=== PATIENT | female | born 1990 | race Caucasian/White ===

== ENCOUNTER 2019-03-12 21:59 | Outpatient (CLI) | payer OTHER ==
[2019-03-12 23:24] VITALS: BP 125/77; PULSE 104; RESP 16; TEMP 98.1
--- NOTE | 2019-03-13 02:06 | US ---
EXAM: US After First Trimester, Transabdominal CLINICAL HISTORY: ITS.REASON US Reason: fluid level TECHNIQUE: Real-time transabdominal obstetrical ultrasound of the maternal pelvis and a second or third trimester with image documentation. COMPARISON: No relevant prior studies available. FINDINGS: GESTATIONAL AGE / DATING Dates by Current Scan: (38 weeks/0 days) EDC: 03/27/2019 SURVEY IUP: Single PLACENTA: Anterior. Small anechoic area seen suggestive of venous mendieta measuring 10.6 mm. PREVIA: No Previa AKIRA: 16.5 cm CERVICAL LENGTH: 3.0 cm Limited cervical measurement due to position. BIOMETRY PRESENTATION: Vertex LIE: Longitudinal BPD: 9.42 cm 38 weeks / 3 days HC: 33.68 cm 38 weeks / 4 days AC: 34.19 cm 38 weeks / 1 days FL: 7.50 cm 38 weeks / 3 days ESTIMATED WEIGHT IN GRAMS: 3439 grams ESTIMATED WEIGHT IN LBS/OZ: 7 lbs. 9 oz. WEIGHT PERCENTAGE BASED ON ESTABLISHED DATES: 63.5% HC/AC: 0.99 FL/AC: 21.94 HEART RATE: 160 bpm IMPRESSION: Single live intrauterine measuring 38 weeks.
--- NOTE | 2019-03-20 12:45 | P.MSEPDOC ---
Presenting Problems - Arrival Data Date of Arrival on Unit: 03/12/19 Time of Arrival on Unit: 22:00 Mode of Transport: Portable - Complaint OB-Reason for Admission/Chief Complaint: Possible Onset of Labor Comment: irreg cntrx all day, worsening about 1900 Medical History - Information : 9 Para: 3 Term: 3 : 0 Abortions: Spontaneous or Elective: 5 Number of Living Children: 3 - Gestational Age Gestational Age by GRACE (wks/days): 38 Weeks and 1 Days - History Complications: Prior Comment: former smoker, quit with Review of Systems - Review of Systems Constitutional: No problems Breast: No problems ENT: No problems Cardiovascular: No problems Respiratory: No problems Gastrointestinal: No problems Genitourinary: No problems Musculoskeletal: No problems Neurological: No problems Skin: No problems Vital Signs - Temperature Temperature: 98.1 F Temperature Source: Oral - Pulse Right Pulse Rate: 104 Pulse Assessment Method: Pulse Oximetry - Respirations Respiratory Rate: 16 O2 Sat by Pulse Oximetry: 97 - Blood Pressure Right Arm Blood Pressure: 125/77 Blood Pressure Mean: 93 Blood Pressure Source: Automatic Cuff Medical Screen Scoring (Pre) - Cervical Exam Dilation: 0 cm = 0 Effacement: More than 50% = 2 Membranes: Intact - Uterine Contractions Frequency: > or = 36 weeks =2 - Maternal Vital Signs Maternal Temperature: N/A Maternal Blood Pressure: N/A Signs of Preeclampsia: N/A Maternal Respirations: N/A - Maternal Trauma Maternal Trauma: N/A - Assessment - Baby A Baseline FHR: 120 Heart Rate - NICHD Category: Category I (Normal) = 0 NST: Reactive Position: N/A - Total Score - Baby A Total Score - Baby A: 4 - Total Score - Baby B Total Score - Baby B: 4 - Total Score - Baby C Total Score - Baby C: 4 - Level of Risk - Baby A Level of Risk - Baby A: Low (0-5) - Level of Risk - Baby B Level of Risk - Baby B: Low (0-5) - Level of Risk - Baby C Level of Risk - Baby C: Low (0-5) Physician Notification (Post) - Notification Comment Comment: Dr. Flores at bedside Disposition - Disposition Discharge Date: 03/13/19 Discharge Time: 01:54 I agree with the RN Medical Screening Exam: Yes Risk & Benefit of care provided described in d/c instruction: Yes Diagnosis: FALSE LABOR AT OR AFTER 37 COMPLETED WEEKS OF GESTATION
== END 2019-03-13 01:54 | disposition home or self-care (01) ==
LOC: FBPOP 21:59
PROVIDERS: ATTEND Obstetrics & Gynecology
DX: O47.1 False labor at or after 37 completed weeks of gestation (principal); Z3A.38 38 weeks gestation of pregnancy
CPT/HCPCS: 59025; 76805; G0463; 99213

== ENCOUNTER 2019-03-19 05:49 | Inpatient (IN) | payer OTHER ==
[2019-03-15 15:18] VITALS: BMI 31.9
[2019-03-19] MEDS ORDERED: LACTATED RINGERS 1,000 ML IV ONE (06:22)
[2019-03-19] MEDS ORDERED: CITRIC ACID-SODIUM CITRATE 15 ML CUP PO ONE (06:22)
[2019-03-19] MEDS ORDERED: ceFAZolin IN SWFI 2 GM/20 ML SYRINGE IVP ONE (06:22)
[2019-03-19 07:18] LABS: Basophils % (A) 1 %; Eosinophils # (A) 0.1 k/uL (0-0.7); Eosinophils % (A) 1 %; HCT 33.8 % (34.0-46.0); HGB 11.1 gm/dL (11.4-16.0); Hypochromasia Slight; Lymphocytes % (A) 23 %; MCHC 32.8 g/dL (31.0-37.0); MCV 85.4 fL (80.0-100.0); Mean Platelet Volume 9.1; Monocytes # (A) 0.5 k/uL (0-1.0); Monocytes % (A) 5 %; Neutrophils # (A) 6.1 k/uL (1.3-7.7); Neutrophils % (A) 69 %; Platelet Count 237 k/uL (150-450); RBC 3.96 m/uL (3.80-5.40); WBC 8.8 k/uL (3.8-10.6)
[2019-03-19] MEDS ORDERED: KETOROLAC 30 MG/ML 1 ML VIAL ONE (08:00)
[2019-03-19] MEDS ORDERED: PHENYLEPHRINE-0.9% NACL SYG 1 MG/10 ML SYRINGE ONE (08:00)
[2019-03-19] MEDS ORDERED: ONDANSETRON 4 MG/2 ML VIAL ONE (08:00)
[2019-03-19] MEDS ORDERED: LACTATED RINGERS 1,000 ML BAG IV ONE (08:00)
[2019-03-19] MEDS ORDERED: MORPHINE SULFATE (PF) 0.3 MG/0.3 ML SYR ONE (08:00)
[2019-03-19] MEDS ORDERED: NALBUPHINE 10 MG/ML (1 ML AMP) ONE (08:00)
[2019-03-19] MEDS ORDERED: OXYTOCIN 10 UNIT/ML 1 ML VIAL ONE (08:00)
[2019-03-19] MEDS ORDERED: NALOXONE 0.4 MG/ML 1 ML VIAL IV PRN ×2 (08:32→08:46)
[2019-03-19] MEDS ORDERED: ONDANSETRON 4 MG/2 ML VIAL IVP PRN ×2 (08:32→08:46)
[2019-03-19] MEDS ORDERED: diphenhydrAMINE 50 MG/ML 1 ML VIAL IVP PRN ×3 (08:32→08:46)
[2019-03-19] MEDS ORDERED: HYDROmorphone 0.5 MG/0.5 ML SYRINGE IVP PRN (08:32)
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
--- NOTE | 2019-03-19 08:43 | P.OP ---
Date of Procedure: 03/19/19 Preoperative Diagnosis: Intrauterine : Prior sections: Family planning Postoperative Diagnosis: Same Procedure(s) Performed: Repeat low transverse section Anesthesia: spinal Surgeon: Richardson Rivero Postulant #1: Malcolm Curry Estimated Blood Loss (ml): 500 IV fluids (ml): 800 Urine output (ml): 100 Pathology: none sent Condition: stable Disposition: floor Operative Findings: Female scores of 9 and 9 at one and 5 minutes respectively and the weight was 8 lbs. 3 oz. There was a body the cord noted but did not cause any issues Description of Procedure: Patient was taken to the operating suite where a spinal anesthetic was found be adequate. She was prepped and draped in the normal sterile fashion and placed in dorsal supine position with leftward tilt. Initially a Pfannenstiel skin incision was made and this incision was then carried through to the underlying layer of the fascia second knife. Fascia was then nicked in midline and this opening was extended laterally with Duke scissors. Superior and inferior aspect this incision was then grasped tented up and bluntly and sharply dissected off the rectus muscles. Rectus muscles were then divided the midline and sharp dissection through the peritoneum was done. Once this opening was created Duke scissors reviewed to extend the incision superiorly and inferiorly due to scar tissue. Once this was accomplished bladder blade was placed bladder was noted to be well out of our incision line and therefore he incision on the uterus was made and this opening was fully developed with hemostat and bluntly extended. Head was then atraumatically delivered and mouth nares were bulb suctioned. Anterior and posterior shoulders along with the remainder the baby was then del ivered without difficulty. Umbilical cord was then clamped cut usual fashion an nursery personnel was present to assume care. Placenta was then delivered intact and Pitocin was added to the IV. Uterus was then exteriorized cleared of clots and debris and closed in 1 layer with 0 Vicryl suture. Once excellent hemostasis was obtained Filshie clip's were placed 2 cm from uterine cornu. No bleeding is noted in the mesosalpinx. Blood and debris and debris was then suctioned from the posterior cul-de-sac. Uterus was then reinserted into the abdomen and the peritoneal layer was reapproximated with 3-0 Vicryl. Fascial layer was then closed with 0 Vicryl suture. One layer of 3-0 Vicryl was placed in deep subcuticular tissues to reapproximate skin and close space. Skin was then closed with 3-0 Vicryl subcuticular. Sponge, lap, needle counts were all correct 2. Patient was then taken to the recovery room in stable and satisfactory condition.
[2019-03-19] MEDS ORDERED: diphenhydrAMINE 25 MG CAP PO PRN (08:46)
[2019-03-19] MEDS ORDERED: ACETAMINOPHEN TAB 325 MG TAB PO PRN (08:46)
[2019-03-19] MEDS ORDERED: ZOLPIDEM 5 MG TAB PO PRN (08:46)
[2019-03-19] MEDS ORDERED: diphenhydrAMINE 50 MG CAP PO PRN (08:46)
[2019-03-19] MEDS ORDERED: KETOROLAC 30 MG/ML 1 ML VIAL IVP PRN (08:46)
[2019-03-19] MEDS: LACTATED RINGERS 1,000 ML IV SCH ×4 (09:14→20:32)
[2019-03-19] MEDS: KETOROLAC 30 MG/ML 1 ML VIAL IVP PRN ×2 (14:53→23:08)
[2019-03-19] MEDS: SENNOSIDES-DOCUSATE SODIUM 1 EACH TAB PO SCH (19:36)
--- NOTE | 2019-03-20 05:49 | P.PN ---
Progress Note - Text Progress Note Date: 03/20/19 Patient doing well. Ambulating without paresthesia or weakness. Denies headache. Pain controlled. Spinal site clean and dry A/P POD#1 s/p with spinal duramorph - doing well
[2019-03-20] MEDS: HYDROcodone/APAP 7.5-325MG 1 EACH TAB PO PRN ×4 (07:05→23:44)
--- NOTE | 2019-03-20 07:35 | P.PNOBGPC ---
Subjective - Subjective Principal diagnosis: Postop day 1 Interval history: Overall scissors doing very well. She is involuting, voiding tolerating her diet. She'll take sharp later this morning and will remove dressing. Vital signs are stable and afebrile. Heart regular, lungs clear, extremities without pain. Abdomen soft and nontender other than incisional tenderness. Uterus is firm. Assessment postop day 1. Plan advance diet and continue current care. Patient reports: Reports appetite normal, Reports voiding normally, Reports pain well controlled, Reports ambulating normally : doing well Objective - Vital Signs Latest vital signs: Vital Signs Temp Pulse Resp BP Pulse Ox 03/20/19 06:00 16 03/20/19 03:57 98.2 F 78 14 107/66 98 03/20/19 02:00 16 03/19/19 23:55 97.0 F L 88 16 104/61 98 03/19/19 22:00 16 03/19/19 19:45 97.9 F 85 16 99/51 98 03/19/19 18:00 18 03/19/19 16:00 18 03/19/19 15:00 98.1 F 84 18 106/64 96 03/19/19 14:00 18 03/19/19 12:00 18 03/19/19 10:40 97.6 F 66 16 102/60 98 03/19/19 10:10 66 16 102/57 97 03/19/19 09:40 81 16 101/56 98 03/19/19 09:25 76 16 100/67 98 03/19/19 09:10 77 16 100/56 98 03/19/19 08:55 90 16 107/54 98 03/19/19 08:40 96.3 F L 100 16 106/57 97 Intake and Output 03/19/19 03/20/19 03/20/19 22:59 06:59 14:59 Intake Total 1000 Output Total 1600 1500 Balance -600 -1500 Intake: IV 1000 Invasive Line 1 1000 Output: Urine 1600 1500 Uretheral (Jon) 600 Other: # Voids 1
[2019-03-20 07:49] LABS: Basophils % (A) 0 %; Eosinophils # (A) 0.1 k/uL (0-0.7); Eosinophils % (A) 1 %; HCT 33.2 % (34.0-46.0); HGB 10.8 gm/dL (11.4-16.0); Hypochromasia Slight; Lymphocytes # (A) 1.6 k/uL (1.0-4.8); Lymphocytes % (A) 15 %; MCHC 32.6 g/dL (31.0-37.0); Mean Platelet Volume 9.1; Monocytes # (A) 0.7 k/uL (0-1.0); Monocytes % (A) 7 %; Neutrophils # (A) 8.5 k/uL (1.3-7.7); Neutrophils % (A) 77 %; Platelet Count 214 k/uL (150-450); RBC 3.87 m/uL (3.80-5.40); RDW 14.5 % (11.5-15.5); WBC 11.1 k/uL (3.8-10.6)
[2019-03-20] MEDS: SENNOSIDES-DOCUSATE SODIUM 1 EACH TAB PO SCH ×2 (08:17→19:46)
[2019-03-20] MEDS: IBUPROFEN 600 MG TAB PO PRN ×2 (10:41→18:41)
[2019-03-20 15:35] VITALS: RESP 16
[2019-03-21 00:32] VITALS: TEMP 97.7
[2019-03-21] MEDS: IBUPROFEN 600 MG TAB PO PRN ×2 (03:07→11:14)
[2019-03-21] MEDS: HYDROcodone/APAP 7.5-325MG 1 EACH TAB PO PRN (05:59)
--- NOTE | 2019-03-21 08:16 | P.PNOBGPC ---
Subjective - Subjective Principal diagnosis: Postop day 2 Interval history: Overall Davina is doing well. She is involuting, voiding tolerating her diet. She is passing flatus. All questions are answered for today. Her baby is on the BiliBlanket and therefore is not ready to go home. We'll plan continue care for now. Vital signs otherwise stable and afebrile. Heart regular, lungs clear, extremities without pain. Abdomen soft positive bowel sounds are noted in her incision is clean dry and intact. Assessment day 2/postop day 2. Plan continue care. Patient reports: Reports appetite normal, Reports voiding normally, Reports pain well controlled, Reports ambulating normally : other (Jaundice) Objective - Vital Signs Latest vital signs: Vital Signs Temp Pulse Resp BP Pulse Ox 03/21/19 00:00 97.7 F 83 16 104/58 03/20/19 15:35 98.3 F 94 16 116/59 03/20/19 11:38 96 03/20/19 11:36 98.3 F 74 18 111/64 96 Intake and Output 03/20/19 03/21/19 03/21/19 22:59 06:59 14:59 Other: # Voids 1 1
[2019-03-21 08:30] VITALS: BP 101/74; PULSE 82
[2019-03-21] MEDS: SENNOSIDES-DOCUSATE SODIUM 1 EACH TAB PO SCH (08:39)
--- NOTE | 2019-03-21 14:23 | P.DS ---
Providers Date of admission: 03/19/19 05:49 Expected date of discharge: 03/21/19 Attending physician: Richardson Rivero Primary care physician: [facility] Course: Davina is doing very well this afternoon. Nursery was determined baby may be discharged to home this evening. Discharge instructions were thoroughly reviewed and all questions were answered for her and there is no changes from earlier evaluation. She is doing very well. Prescription for Motrin and [place] has been provided. She will follow up with me in 1 week. Patient Condition at Discharge: Good Plan - Discharge Summary Discharge Rx Participant: No New Discharge Prescriptions: New Ibuprofen [Motrin] 600 mg PO Q6HR PRN #30 tab PRN Reason: Pain HYDROcodone/APAP 5-325MG [[place] 5-325] 1 tab PO Q4HR PRN #30 tab PRN Reason: Pain No Action Yck-Qbff-Hrzkt Acid [-U Capsule] 1 tab PO DAILY Chewable Calcium Unk Dose 1 tab PO DAILY Discharge Medication List Aer-Cezo-Swybx Acid [-U Capsule] 1 tab PO DAILY 07/24/14 [History] Chewable Calcium Unk Dose 1 tab PO DAILY 03/15/19 [History] HYDROcodone/APAP 5-325MG [[place] 5-325] 1 tab PO Q4HR PRN #30 tab 03/21/19 [Rx] Ibuprofen [Motrin] 600 mg PO Q6HR PRN #30 tab 03/21/19 [Rx] Follow up Appointment(s)/Referral(s): Richardson Rivero DO [Doctor of Osteopathic Medicine] - 1 Week Activity/Diet/Wound Care/Special Instructions: No heavy lifting, limit stairs and driving, and pelvic rest. If any high temperatures, heavy bleeding, or severe pain call my office Discharge Disposition: HOME SELF-CARE
== END 2019-03-21 16:15 | disposition home or self-care (01) | DRG 785 ==
LOC: 4FBP 05:49
PROVIDERS: ADMIT Obstetrics & Gynecology; ATTEND Obstetrics & Gynecology
PROC: 0UL70CZ Occlusion of Bilateral Fallopian Tubes with Extraluminal Device, Open Approach (ICD-10-PCS; 2019-03-19)
PROC: 10D00Z1 Extraction of Products of Conception, Low, Open Approach (ICD-10-PCS; principal; 2019-03-19 08:00)
DX: O34.211 Maternal care for low transverse scar from previous cesarean delivery (principal); N85.8 Other specified noninflammatory disorders of uterus; Z3A.00 Weeks of gestation of pregnancy not specified; Z37.0 Single live birth; Z30.2 Encounter for sterilization; F17.290 Nicotine dependence, other tobacco product, uncomplicated; Z79.899 Other long term (current) drug therapy; Z86.2 Personal history of diseases of the blood and blood-forming organs and certain disorders involving the immune mechanism; Z98.890 Other specified postprocedural states; Z91.018 Allergy to other foods
CPT/HCPCS: 85025; 86850; 86900; 86901

== ENCOUNTER 2019-03-23 23:28 | Emergency (ER) | payer OTHER ==
[2019-03-23 23:48] VITALS: TEMP 99.5
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
[2019-03-24 01:19] LABS: HGB 10.6 gm/dL (11.4-16.0); Hypochromasia Slight; MCH 27.9 pg (25.0-35.0); MCV 84.4 fL (80.0-100.0); Mean Platelet Volume 8.1; Platelet Count 298 k/uL (150-450); RBC 3.79 m/uL (3.80-5.40); RDW 13.7 % (11.5-15.5); WBC 11.9 k/uL (3.8-10.6)
[2019-03-24 01:29] LABS: ALT 16 U/L (9-52); AST 19 U/L (14-36); African American GFR (CKD) >90 (>60 ml/min/1.73 sqM); Albumin 3.3 g/dL (3.5-5.0); Alkaline Phosphatase 126 U/L (38-126); Anion Gap 10 mmol/L; Blood Urea Nitrogen 13 mg/dL (7-17); Calcium 9.3 mg/dL (8.4-10.2); Carbon Dioxide 20 mmol/L (22-30); Chloride 108 mmol/L (98-107); Glucose 89 mg/dL (74-99); Potassium 4.3 mmol/L (3.5-5.1); Sodium 138 mmol/L (137-145); Total Bilirubin 0.4 mg/dL (0.2-1.3); Total Protein 6.1 g/dL (6.3-8.2)
--- NOTE | 2019-03-24 01:33 | XR ---
EXAM: XR Abdomen, 1 View CLINICAL HISTORY: ITS.REASON XR Reason: Pain TECHNIQUE: Frontal supine view of the abdomen/pelvis. COMPARISON: No relevant prior studies available. FINDINGS: Gastrointestinal tract: Unremarkable. No dilation. Bones/joints: Unremarkable. IMPRESSION: Normal abdominal x-ray.
[2019-03-24] MEDS ORDERED: MORPHINE SULFATE 4 MG/ML SYRINGE IVP STA (02:09)
--- NOTE | 2019-03-24 02:40 | CT ---
EXAM: CT Abdomen and Pelvis With Intravenous Contrast CLINICAL HISTORY: ITS.REASON CT Reason: Pain TECHNIQUE: Axial computed tomography images of the abdomen and pelvis with intravenous contrast. This CT exam was performed using one or more of the following dose reduction techniques: automated exposure control, adjustment of the mA and/or kV according to patient size, and/or use of iterative reconstruction technique. COMPARISON: No relevant prior studies available. FINDINGS: Lung bases: Unremarkable. No mass. No consolidation. ABDOMEN: Liver: Unremarkable. No mass. Gallbladder and bile ducts: No abnormal ductal dilation or stones. Pancreas: Unremarkable. No mass. No ductal dilation. Spleen: Unremarkable. No splenomegaly. Adrenals: Unremarkable. No mass. Kidneys and ureters: Unremarkable. No solid mass. No hydronephrosis. Stomach and bowel: No obstruction. No mucosal thickening. PELVIS: Appendix: No findings to suggest acute appendicitis. Bladder: Unremarkable. No mass. Reproductive: Uterus is enlarged and may be post gravid. There are scattered areas of gas within the uterus. ABDOMEN and PELVIS: Intraperitoneal space: Unremarkable. No free air. No significant fluid collection. Bones/joints: No acute fracture. No dislocation. Soft tissues: No abdominal wall fluid collection. Vasculature: No abdominal aortic aneurysm. Lymph nodes: Unremarkable. No enlarged lymph nodes. IMPRESSION: 1. Uterus is enlarged and may be post gravid. There are scattered areas of gas within the uterus. Please correlate clinically. No intrapelvic fluid collection. 2. No abdominal wall fluid collection.
[2019-03-24 04:25] VITALS: BP 109/75; PULSE 63; RESP 16
== END 2019-03-24 04:25 | disposition home or self-care (01) ==
LOC: EC 23:28
DX: R10.31 Right lower quadrant pain (principal); R10.32 Left lower quadrant pain; R10.813 Right lower quadrant abdominal tenderness; R10.814 Left lower quadrant abdominal tenderness; R50.9 Fever, unspecified; D72.829 Elevated white blood cell count, unspecified; Z91.018 Allergy to other foods; Z87.891 Personal history of nicotine dependence; Z98.51 Tubal ligation status; Z98.890 Other specified postprocedural states
CPT/HCPCS: 36415; 80053; 85027; 74018; 74177; 99284; 96374; J2270; Q9967

== ENCOUNTER → 2020-01-29 | Outpatient (CLI) | payer OTHER | END | disposition home or self-care (01) | LOC: LABWHC1 13:24 | PROVIDERS: ATTEND Family Medicine | DX: Z11.59 Encounter for screening for other viral diseases (principal) | CPT/HCPCS: 87635 ==

== ENCOUNTER → 2020-01-30 | Day surgery (SDC) | payer OTHER ==
[2020-01-30 12:01] VITALS: RESP 16; TEMP 98
[2020-01-30 14:09] VITALS: BP 97/57; PULSE 77
--- NOTE | 2020-01-30 14:13 | USB ---
EXAMINATION TYPE: US biopsy breast VAD RT DATE OF EXAM: 01/30/2020 CLINICAL HISTORY: N63 Breast lump. Palpable nonpainful abnormality, abnormal outside ultrasound. TECHNIQUE: Ultrasound guided core biopsy of right breast with clip placement. COMPARISON: Outside right breast ultrasound report January 09, 2020 FINDINGS: The procedure of ultrasound guided core biopsy was explained to the patient. Benefits, alternatives, and risks were discussed. An informed consent was then obtained. The patient was placed in supine positioning for imaging and for the procedure. Preprocedure ultrasound redemonstrates 2.8 x 1.8 cm oval well-defined heterogeneous hypoechoic lesion 12:00 position right breast. The overlying skin was prepped and draped in usual sterile fashion. Lidocaine is used as anesthetic into the skin and subcutaneous tissue up to area of concern in the right breast. Under ultrasound guidance, a vacuum assisted biopsy gun device was used to obtain 3 core samples. Following this, a biopsy clip was left on periphery or average of lesion as I could not penetrate lesion for more central placement. The patient tolerated the procedure well without any immediate complication. The patient was kept in the radiology department for short stay after the procedure and then discharged home in stable condition. IMPRESSION: Successful, uncomplicated ultrasound guided core biopsy of area of concern in the right breast, full pathology results to follow. Low index of suspicion, favor fibroadenoma. Pathology Results: Benign RIGHT BREAST, TWELVE O'CLOCK, ULTRASOUND GUIDED CORE BIOPSY: Fibroadenoma. Recommendation Excision can be considered if symptomatic. MTDD
== END ==
LOC: RADUSWWP 10:48
PROVIDERS: ATTEND Family Medicine
DX: D24.1 Benign neoplasm of right breast (principal)
CPT/HCPCS: 88305; 19083; A4648; J2001

== ENCOUNTER → 2020-05-16 | Outpatient (CLI) | payer OTHER ==
[2020-05-16 15:25] VITALS: BP 111/73; PULSE 111; RESP 18; TEMP 98.5
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
== END | disposition home or self-care (01) ==
LOC: WWCWWP 14:45
PROVIDERS: ATTEND Surgery
DX: Z53.9 Procedure and treatment not carried out, unspecified reason (principal)

== ENCOUNTER → 2020-06-02 | Outpatient (CLI) | payer OTHER ==
--- NOTE | 2020-06-02 12:20 | USB ---
Reason for exam: follow-up at short interval from prior study. History: Benign US biopsy breast VAD RT of the right breast, January 30, 2020. Physical Findings: Nurse Summary: 2cm movable tender lump right breast 12 o'clock, 1cm lump right breast 8 o'clock (nurse mj). US Breast BILAT Right complete breast ultrasound includes all four quadrants, the retroareolar region and axilla. Finding demonstrates a 2.9 x 2.6 x 1.7cm oval, solid, hypoechoic, vascular lesion at 12 o'clock BB, a 1.6 x 2.1 x 1.5cm oval, lobular, solid, hypoechoic, vascular lesion at 8 o'clock BB and a 0.9 x 0.4 x 0.4cm oval, solid, hypoechoic lesion at 10 o'clock. Left complete breast ultrasound includes all four quadrants, the retroareolar region and axilla. Finding demonstrates a 0.4 x 0.4 x 0.1cm oval, irregular, hypoechoic lesion at 1 o'clock and a 1.4 x 1.0 x 0.4cm elongated, lobular, hypoechoic, vascular lesion at 9 o'clock, biopsy recommended. These results were verbally communicated with the patient and result sheet given to the patient on 06/02/20. ASSESSMENT: Suspicious, BI-RAD 4 RECOMMENDATION: Ultrasound core biopsy of the left breast. (9 o'clock) Called office with mammographic findings and has scheduled an appointment for the patient for 06/13/20 at 9:[address] Best. Biopsy scheduled for 06/16/20 at 10:30. PRELIMINARY REPORT CALLED AND FAXED TO DR. BEST ON 06/02/20.
== END | disposition home or self-care (01) ==
LOC: RADUSWWP 09:43
PROVIDERS: ATTEND Surgery
DX: N63.20 Unspecified lump in the left breast, unspecified quadrant (principal); N63.10 Unspecified lump in the right breast, unspecified quadrant

== ENCOUNTER → 2020-06-16 | Day surgery (SDC) | payer OTHER ==
[2020-06-16 09:53] VITALS: BP 116/78; PULSE 91; RESP 16; TEMP 98.6
--- NOTE | 2020-06-16 18:07 | USB ---
EXAMINATION TYPE: US discontinued breast bx LT DATE OF EXAM: 06/16/2020 COMPARISON: 06/02/2020 HISTORY: 29-year-old female referred for ultrasound-guided left breast biopsy at the 9:00 position. E nlarging fibroadenomas scheduled for excision within the right breast. TECHNIQUE: Initial targeted ultrasound examination at the 9:00 position at the intended biopsy target . FINDINGS: There is a poorly defined area of hypoechogenicity. On real-time scanning, this area appears to dispe rse and elongate resembling the surrounding breast parenchyma. This is not felt to represent an adequ ate biopsy targeted on real-time scanning. Biopsy is being canceled and 6 month follow-up ultrasound is recommended. Findings and impression are discussed with the patient. IMPRESSION: BI-RADS 3, probably benign. RECOMMENDATION: 1. Six-month follow-up left breast ultrasound at the 9:00 position. The intended biopsy targeted appe ars to disperse and elongate on real-time scanning resembling normal breast tissue. 2. Continue with intended plan for surgical management of enlarging right-sided fibroadenoma.
== END ==
LOC: RADUSWWP 09:35
PROVIDERS: ATTEND Surgery
DX: R92.8 Other abnormal and inconclusive findings on diagnostic imaging of breast (principal); Z53.8 Procedure and treatment not carried out for other reasons

== ENCOUNTER → 2020-07-18 | Outpatient (CLI) | payer OTHER ==
[2020-07-18 14:11] VITALS: BP 111/75; PULSE 87; RESP 18; TEMP 98
--- NOTE | 2020-07-18 14:20 | P.PN ---
Subjective Progress Note Date: 07/18/20 Principal diagnosis: mass right breast Yenni is a 29 -year-old white female who presents with a complaint of a palpable lump in the 12 o'clock position of the right breast. This has been present since approximately October 2019. A biopsy was performed and was consistent with a fibroadenoma. At that time the lesion was approximately 2.8 cm in size. She believes it is increased in size since that time. It is not painful. She also complains of some new nodularity which is tender in the inferior aspect of the right breast. She is not complaining of any lumps masses or nodules in the left breast. She complains of some bloody discharge from the right nipple complex, this happened once approximately 3 weeks ago. This was spontaneous and she noted it when she woke up in the morning. She is not complaining of any discharge from the left nipple complex. She has no history of any recent trauma or infection of the breast. Bilateral breast ultrasound was performed on 157 820 this revealed in the right breast: 2.9 cm x 2.6 cm solid lesion at 12:00 1.6 cm x 1.5 cm solid lesion at 8:00 An 0.9 cm x 0.4 cm solid lesion at 10:00 Left breast revealed 0.4 x 0.4 cm irregular lesion at 1:00 1.4 x 1 cm lobulated lesion at 9:00 biopsy recommended The patient came for a left breast ultrasound-guided core biopsy on however this appeared to disperse and the radiologist felt that this could be canceled and therefore a 6 month follow-up ultrasound was recommended instead. Caffeine: Depending on the day she may drink a pot of coffee or feeding Nicotine: vapes intermittently throughout the day Theophylline: occasional Family history: maternal great aunts: 2 with breast cancer maternal great grandmother: breast cancer Maternal grandfather: Pancreatic cancer Paternal grandfather: Colon cancer Maternal grandmother: Kidney cancer and lymphoma Hormonal History: menarche: 13 , miscarrages: 5, breast fed: none; first born at 21 periods irregular since tubaligation/ occurs every 14-16 days BCP: none hormones: none Surgical history: Left arm Pneumothorax 5 emergency D&Cs 4 C-sections Tubal ligation Medical history: hypoglycemic Social History: Smoking: Negative, patient invades Alcohol: Negative Drugs: Marijuana occasionally - Constitutional Constitutional: Denies chills, Denies fever - EENT Eyes: denies blurred vision, denies pain Ears: deny: decreased hearing, tinnitus Ears, nose, mouth and throat: Denies headache, Denies sore throat - Breasts Breasts: bilateral: as per HPI - Cardiovascular Cardiovascular: Denies chest pain, Denies shortness of breath - Respiratory Respiratory: Denies cough - Gastrointestinal Gastrointestinal: Denies abdominal pain, Denies diarrhea, Denies nausea, Denies vomiting - Genitourinary (Female) Comment: Frequent kidney infections Genitourinary: Denies dysuria, Denies hematuria - Menstruation Menstruation: Reports cycle variable - Musculoskeletal Musculoskeletal: Denies myalgias - Integumentary Integumentary: Denies pruritus, Denies rash - Neurological Neurological: Denies numbness, Denies weakness - Psychiatric Psychiatric: Denies anxiety, Denies depression - Endocrine Endocrine: Denies fatigue, Denies weight change - Hematologic/Lymphatic Comment: none - Allergic/Immunologic Allergic/Immunologic: Reports as per HPI Objective - Constitutional General appearance: Present: average body habitus - EENT Eyes: Present: EOMI ENT: Present: hearing grossly normal - Neck Neck: Present: normal ROM - Respiratory Respiratory: bilateral: CTA - Cardiovascular Rhythm: regular Heart sounds: normal: S1, S2 - Gastrointestinal General gastrointestinal: Present: normal bowel sounds, soft - Integumentary Integumentary: Present: normal turgor - Musculoskeletal Musculoskeletal: Present: gait normal - Psychiatric Psychiatric: Present: A&O x's 3, appropriate affect - Additional findings Additional findings: breat exam: BRA: 36C inspection: bilateral grade 2 ptosis palpation: right breast: Multi-positional examination reveals proximally 2.6 cm lesion near 12:00 and about a 1.3 cm lesion near 7:00 otherwise fibrocystic changes Right axilla: No adenopathy of concern Left breast: Fibrocystic changes and multiple positional exam no dominant masses or nodules of concern Left axilla: No adenopathy of concern Assessment and Plan Assessment: Impression: 1. 2 palpable abnormalities right breast core biopsy of one consistent with fibro adenoma 2. Left breast mammogram/ultrasound attempted core biopsy recommended to have repeat ultrasound in 6 months biopsy was canceled via radiology Plan: 1. Excisional biopsy 2 palpable abnormalities right breast we will not plan to use mastopexy incision but may do onco-plastic tissue transfer Risks and benefits of the procedure discussed with the patient including but not limited to bleeding, infection, reaction to the anesthetic. She may have recurrent fibroadenoma in the future. She understands and wishes to proceed. CC: Jocelyne Marie encounter 25 minutes > 50% of time in planning and counselling
== END | disposition home or self-care (01) ==
LOC: WWCWWP 13:58
PROVIDERS: ATTEND Surgery
DX: Z53.9 Procedure and treatment not carried out, unspecified reason (principal)

== ENCOUNTER 2020-07-22 11:09 | Day surgery (SDC) | payer OTHER ==
[2020-07-21 10:10] VITALS: BMI 25.0
[~2020-07-22 11:09] MED LIST: HEPARIN SODIUM,PORCINE 5,000 UNIT/ML 1 ML VIAL SQ ONE; HYDROmorphone 0.5 MG/0.5 ML SYRINGE IVP PRN; LACTATED RINGERS 1,000 ML IV SCH; ONDANSETRON 4 MG/2 ML VIAL IVP ONE; Pre Op ABX Message 1 EACH MISC MISCELLANE ONE; fentaNYL (PF) 50 MCG/ML 2 ML AMP IV PRN
[2020-07-22 11:41] LABS: Glucose,Whole Blood 84 mg/dL (75-99)
[2020-07-22] MEDS ORDERED: DEXAMETHASONE SOD PHOSPHATE 4 MG/ML 1 ML VIAL IV ONE (11:41)
[2020-07-22] MEDS ORDERED: HYDROmorphone (PF) 1 MG/ML ONE (13:14)
[2020-07-22] MEDS ORDERED: PROPOFOL 10 MG/ML 20 ML VIAL IV ONE (13:14)
[2020-07-22] MEDS ORDERED: SUCCINYLCHOLINE CHLORIDE 100 MG/5 ML SYR IV ONE (13:14)
[2020-07-22] MEDS ORDERED: LIDOCAINE 1% INJ 10MG/ML (20 ML MDV) ONE (13:14)
[2020-07-22] MEDS ORDERED: PHENYLEPHRINE-0.9% NACL SYG 1 MG/10 ML SYRINGE ONE (13:14)
[2020-07-22] MEDS ORDERED: fentaNYL (PF) 50 MCG/ML 2 ML AMP ONE (13:14)
[2020-07-22] MEDS ORDERED: MIDAZOLAM 2 MG/2 ML VIAL ONE (13:14)
--- NOTE | 2020-07-22 14:24 | P.OP ---
Date of Procedure: 07/22/20 Preoperative Diagnosis: Palpable mass 2 right breast Postoperative Diagnosis: same Procedure(s) Performed: Excision breast lesion 2 right breast Anesthesia: JAMIR Surgeon: Danni Best Estimated Blood Loss (ml): 5 IV fluids (ml): 650 Pathology: other (lesion tmes two right breast) Condition: stable Disposition: same day Indications for Procedure: palpable mass times two right breast, core biopsy fibroadenoma Operative Findings: two masses right breast Description of Procedure: The patient is a 29-year-old white female who presents with 2 palpable masses in her right breast. Core biopsy had been consistent with fibroadenoma. These are worrisome for the patient. The patient was brought to the operating room and following induction of general anesthesia the right breast was prepped and draped in a sterile fashion. 2 lesions were palpable one at 12:00 and one at 7:30 to 8:00. The lesion at 7:30 to 8:00 and removed first. An incision was made over the lesion and this area was resected. It was 2 cm x 2 cm in size and deep in the breast tissue. After assured that hemostasis was attained the skin was closed using a 3-0 Vicryl for deep tissues and 4-0 Monocryl and the superfic ial tissues with a nylon skin suture. The superior lesion was then approached. This was 2 x 2 centimeters in size. This was deep on the pectoralis major muscle. Incision was made over the palpable mass and this was excised. After we were assured that hemostasis was obtained the deep tissues were closed using a 3-0 Vicryl suture followed by closure of the skin with 4-0 Monocryl, Steri-Strips were applied. The patient tolerated the procedure in stable condition. All instrument and sponge counts were correct at the end of the case.
--- NOTE | 2020-07-22 14:26 | P.DS ---
Providers Attending physician: Danni Best Primary care physician: Jorge Luis Milligan MD Plan - Discharge Summary Discharge Rx Participant: No New Discharge Prescriptions: No Action Cholecalciferol [Vitamin D3 (25 Mcg = 1000 Iu)] 2,000 unit PO DAILY Dextroamphetamine/Amphetamine [Adderall] 20 mg PO DAILY PRN PRN Reason: ADHD Discharge Medication List Cholecalciferol [Vitamin D3 (25 Mcg = 1000 Iu)] 2,000 unit PO DAILY 07/18/20 [History] Dextroamphetamine/Amphetamine [Adderall] 20 mg PO DAILY PRN 07/21/20 [History] Follow up Appointment(s)/Referral(s): Danni Best MD [STAFF PHYSICIAN] - 1 Week Activity/Diet/Wound Care/Special Instructions: do not drive until seen by DR. Givens wear bra at all times may shower after 48 hours Discharge Disposition: HOME SELF-CARE
[2020-07-22 14:45] VITALS: TEMP 97.8
[2020-07-22] MEDS ORDERED: diphenhydrAMINE 50 MG/ML 1 ML VIAL IVP ONE (14:59)
[2020-07-22] MEDS ORDERED: HYDROmorphone 0.2 MG/1 ML SYRINGE IVP ONE (15:00)
[2020-07-22] MEDS ORDERED: LACTATED RINGERS 1,000 ML IV ONE ×2 (15:03)
[2020-07-22 15:50] VITALS: RESP 16
[2020-07-22] MEDS ORDERED: HYDROcodone/APAP 5-325MG 1 EACH TAB ONE (15:54)
[2020-07-22 15:57] VITALS: BP 118/79; PULSE 80
[2020-07-22] MEDS ORDERED: HYDROcodone/APAP 5-325MG 1 EACH TAB PO ONE (15:57)
== END 2020-07-22 16:40 | disposition home or self-care (01) ==
LOC: OR 11:09
PROVIDERS: ATTEND Surgery
DX: D24.1 Benign neoplasm of right breast (principal); F90.9 Attention-deficit hyperactivity disorder, unspecified type; Z79.899 Other long term (current) drug therapy; Z91.018 Allergy to other foods; Z98.51 Tubal ligation status; Z98.891 History of uterine scar from previous surgery; Z98.890 Other specified postprocedural states; Z80.0 Family history of malignant neoplasm of digestive organs; Z80.3 Family history of malignant neoplasm of breast; Z80.51 Family history of malignant neoplasm of kidney; Z80.7 Family history of other malignant neoplasms of lymphoid, hematopoietic and related tissues
CPT/HCPCS: 81025; 88305; 19120; J2250; J1200; J1644; J1100; J2405; J2001; J3010; J1170 ×2; J2370; J0330; J2704

== ENCOUNTER → 2020-07-25 | Outpatient (CLI) | payer OTHER ==
[2020-07-25 15:57] VITALS: BP 108/72; PULSE 83; RESP 18; TEMP 98.1
--- NOTE | 2020-07-25 16:03 | P.PN ---
Progress Note - Text Progress Note Date: 07/25/20 Yenni is a 29 year old white female status post removal of two masses in her right breast on 07-22-20. Pathology was consistent with fibroadenomas. She is doing well at this time. Lungs: clear heart: RRR incisions clean and dry Impression: 1. Fibroadenomas 2 sites right breast patient doing well postop Plan: 1. Remove sutures 2. Follow up bilateral ultrasound in 6 months with physician examine that time CC: Alpa Greenberg
== END | disposition home or self-care (01) ==
LOC: WWCWWP 15:46
PROVIDERS: ATTEND Surgery
DX: Z53.9 Procedure and treatment not carried out, unspecified reason (principal)